=== PATIENT | female | born 1990 | race American Indian/Alaskan Native ===

== ENCOUNTER 2017-06-27 23:23 | Emergency (ER) | payer BC ==
[~2017-06-27] VITALS: Ht 162.6 cm; Wt 83.4 kg
[2017-06-28] MEDS ORDERED: ketorolac trometh. 30mg/ml inj. IM ONE (02:10)
[2017-06-28] MEDS ORDERED: diazepam 5mg tablet PO ONE (02:10)
[2017-06-28 02:40] LABS: CLARITY,URINE SLIGHTLY CLOUDY (Clear); COLOR,URINE YELLOW (Yellow); GLUCOSE, URINE NEGATIVE (Neg); KETONES,URINE NEGATIVE (Neg); LEUKOCYTE ESTERASE ,URINE NEGATIVE (Neg); NITRITES, URINE NEGATIVE (Neg); OCCULT BLOOD,URINE SMALL (Neg); PROTEIN,URINE NEGATIVE (Neg); URINE HCG NEGATIVE (NEG); UROBILINOGEN,URINE 0.2 E.U/dL (0.2-1.0)
[2017-06-28 02:42] LABS: UA COLLECTION TYPE CLN CATCH MIDSTREAM
[2017-06-28 02:45] LABS: MUCUS STRANDS MODERATE /LPF (Neg); SQUAMOUS EPITHELIAL CELL,UR MANY /LPF (FEW); WBC,URINE 0-4 /HPF (0-4)
[2017-06-28 02:46] LABS: BACTERIA,URINE 1+ /HPF (Neg)
[2017-06-28 02:53] VITALS: BP 128/80
== END 2017-06-28 02:57 | disposition home or self-care (01) ==
LOC: ER 23:23
DX: M54.5 Low back pain (principal); Z90.89 Acquired absence of other organs; Z88.8 Allergy status to other drugs, medicaments and biological substances; Z88.1 Allergy status to other antibiotic agents; Z91.018 Allergy to other foods
CPT/HCPCS: 81001; 81025; 96372; 99284; J1885